=== PATIENT | female | born 1980 | race Caucasian/White ===

== ENCOUNTER 2021-02-02 20:50 | Emergency (ER) | payer MEDICAID ==
[~2021-02-02] VITALS: Ht 160 cm; Wt 68.8 kg
[2021-02-02] MEDS ORDERED: ALPRAZolam 0.25mg tablet PO ONE (21:45)
[2021-02-02 22:12] VITALS: BP 112/80
== END 2021-02-02 22:13 | disposition home or self-care (01) ==
LOC: ER 20:51
DX: F41.9 Anxiety disorder, unspecified (principal); R07.89 Other chest pain; G89.29 Other chronic pain; F31.9 Bipolar disorder, unspecified
CPT/HCPCS: 93005; 99283

== ENCOUNTER 2021-02-08 16:38 | Emergency (ER) | payer MEDICAID ==
[~2021-02-08] VITALS: Ht 160 cm; Wt 61.4 kg
[2021-02-08 16:41] VITALS: BP 118/90
[2021-02-08] MEDS ORDERED: ALPRAZolam 0.5mg tablet PO ONE (16:45)
== END 2021-02-08 17:03 | disposition home or self-care (01) ==
LOC: ER 16:39
DX: F41.9 Anxiety disorder, unspecified (principal); F32.9 Major depressive disorder, single episode, unspecified; G89.29 Other chronic pain; M54.9 Dorsalgia, unspecified; Z88.8 Allergy status to other drugs, medicaments and biological substances
CPT/HCPCS: 93005; 99283

== ENCOUNTER 2021-02-10 18:32 | Emergency (ER) | payer MEDICAID, OTHER ==
[~2021-02-10] VITALS: Ht 172.7 cm; Wt 72.7 kg
[2021-02-10 18:37] VITALS: BP 124/92
[2021-02-10] MEDS ORDERED: HYDROcodone/acetaminophen 5mg/325mg tablet PO ONE (18:50)
[2021-02-10] MEDS ORDERED: ondansetron 4mg rapidly disintigrating tab PO ONE (18:50)
[2021-02-10] MEDS ORDERED: IBUP-1984 PO (19:53)
[2021-02-10] MEDS ORDERED: CYCL-1 PO (19:53)
[2021-02-10] MEDS ORDERED: HYDR-3965 PO (19:53)
[2021-02-10] MEDS ORDERED: acetaminophen 325mg tablet PO ONE (19:55)
[2021-02-10] MEDS ORDERED: ketorolac trometh inj. 60 MG/2 ML VIAL IM ONE (19:55)
[2021-02-10] MEDS ORDERED: ketorolac trometh. 30mg/ml inj. IM ONE (19:55)
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
--- NOTE | 2021-02-10 20:05 | NUR ---
No acute issues at this time.
== END 2021-02-10 20:30 | disposition home or self-care (01) ==
LOC: ER 18:32
DX: M54.2 Cervicalgia (principal); F41.9 Anxiety disorder, unspecified; F31.9 Bipolar disorder, unspecified; G89.29 Other chronic pain; F19.90 Other psychoactive substance use, unspecified, uncomplicated; V89.2XXA Person injured in unspecified motor-vehicle accident, traffic, initial encounter; Y93.89 Activity, other specified; Y92.89 Other specified places as the place of occurrence of the external cause; Y99.8 Other external cause status
CPT/HCPCS: 70450; 71045; 71250; 72125; 74176; 99285

== ENCOUNTER 2022-02-24 01:09 | Emergency (ER) | payer MEDICAID, OTHER ==
[~2022-02-24] VITALS: Ht 160 cm; Wt 61.4 kg
[~2022-02-24 01:09] MED LIST: CYCL-1 PO
[2022-02-24 01:44] VITALS: BP 119/74
[2022-02-24 01:49] LABS: BASOPHILS % (AUTO) 0.7 % (0-1); EOSINOPHILS # (AUTO) 0.1 X10'3 (0-0.9); EOSINOPHILS % (AUTO) 1.9 % (0-6); HEMATOCRIT 38.3 % (35.0-45.0); HEMOGLOBIN 12.8 g/dl (12.0-16.0); LYMPHOCYTES # (AUTO) 2.9 X10'3 (1.1-4.8); LYMPHOCYTES % (AUTO) 42.8 % (21-51); MEAN CORPUSCULAR HEMOGLOBIN 30.8 PG (27.0-31.0); MEAN CORPUSCULAR HGB CONC 33.4 g/dL (33.0-36.5); MEAN CORPUSCULAR VOLUME 92.5 FL (78-98); MEAN PLATELET VOLUME 9.1 FL (7.4-10.4); MONOCYTES # (AUTO) 0.8 X10'3 (0-0.9); NEUTROPHILS # (AUTO) 2.8 X10'3 (1.8-7.7); NEUTROPHILS % (AUTO) 42.6 % (42-75); PLATELET COUNT 243 X10'3 (140-440); RED BLOOD COUNT 4.14 X10'6 (4.20-5.60); RED CELL DISTRIBUTION WIDTH 13.1 % (11.5-14.5); WHITE BLOOD COUNT 6.7 X10'3 (4.5-11.0)
[2022-02-24 02:12] LABS: ALANINE AMINOTRANSFERASE 14 U/L (12-78); ALBUMIN 3.4 G/DL (3.4-5.0); ALKALINE PHOSPHATASE 66 IU/L (46-116); ASPARTATE AMINO TRANSFERASE 17 U/L (10-37); BILIRUBIN,TOTAL 0.2 MG/DL (0.1-1.0); BLOOD UREA NITROGEN 13 MG/DL (7-18); BUN/CREATININE RATIO 14.4 (6.6-38.0); CALCIUM 8.9 MG/DL (8.5-10.1); GLUCOSE 116 MG/DL (70-104); MAGNESIUM 2.1 MG/DL (1.5-2.4); TOTAL CARBON DIOXIDE 30.1 MMOL/L (24-32); TOTAL PROTEIN 6.9 G/DL (6.4-8.2); eGFR 69 ML/MIN
[2022-02-24 02:23] LABS: ANION GAP 7 (8-16); CHLORIDE 104 MMOL/L (99-107); POTASSIUM 3.9 MMOL/L (3.5-5.1); SODIUM 141 MMOL/L (135-145)
== END 2022-02-24 02:19 | disposition left against medical advice (07) ==
LOC: ER 01:10
DX: R07.9 Chest pain, unspecified (principal); Z53.21 Procedure and treatment not carried out due to patient leaving prior to being seen by health care provider
CPT/HCPCS: 36415; 71045; 80053; 83735; 83880; 84484; 85025; 93005

== ENCOUNTER 2022-05-12 02:03 | Emergency (ER) | payer MEDICAID ==
[~2022-05-12] VITALS: Ht 160 cm; Wt 69.1 kg
[2022-05-12] MEDS ORDERED: LIDOcaine 1% W/epiNEPHrine 1:100,000 20ml vial SQ ONE (02:10)
[2022-05-12] MEDS ORDERED: LIDOCAINE 2%/EPI 1:100,000 inj. Multi-dose 20 ML VIAL SQ ONE (02:20)
[2022-05-12] MEDS ORDERED: acetaminophen 325mg tablet PO ONE (03:10)
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
[2022-05-12 03:12] VITALS: BP 111/77
== END 2022-05-12 03:24 | disposition home or self-care (01) ==
LOC: ER 02:03
DX: S41.111A Laceration without foreign body of right upper arm, initial encounter (principal); G89.29 Other chronic pain; M54.50 Low back pain, unspecified; F31.9 Bipolar disorder, unspecified; Z88.8 Allergy status to other drugs, medicaments and biological substances; W25.XXXA Contact with sharp glass, initial encounter; Y93.89 Activity, other specified; Y92.89 Other specified places as the place of occurrence of the external cause; Y99.8 Other external cause status
CPT/HCPCS: 12004; 99284; J7030; A6258; A6449

== ENCOUNTER 2023-07-13 12:45 | Emergency (ER) | payer MEDICAID ==
[~2023-07-13] VITALS: Ht 160 cm; Wt 94.7 kg
[2023-07-13 12:47] VITALS: BP 168/79; PULSE 131; RESP 16; TEMP 98.6; O2SAT 95
[2023-07-13] MEDS ORDERED: PRED20TA PO (14:21)
[2023-07-13] MEDS ORDERED: SKIN30CL4 TOP (14:21)
[2023-07-13] MEDS: dexamethasone sod phosphate 10mg/ml inj IM STA (14:30)
== END 2023-07-13 14:42 | disposition home or self-care (01) ==
LOC: ER 12:46
DX: L23.7 Allergic contact dermatitis due to plants, except food (principal); F31.9 Bipolar disorder, unspecified; Z88.8 Allergy status to other drugs, medicaments and biological substances; Z79.899 Other long term (current) drug therapy
CPT/HCPCS: 71045; 93005; 96372; 99283; J1100